=== PATIENT | female | born 1985 | race Caucasian/White ===

== ENCOUNTER 2017-01-22 14:08 | Emergency (ER) | payer OTHER, MEDICAID ==
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
[2017-01-22 14:21] VITALS: TEMP 98.4
[2017-01-22] MEDS ORDERED: LORazepam 2 MG/ML INJ ONE (14:46)
[2017-01-22] MEDS ORDERED: LORazepam 2 MG/ML INJ IVP ONE (14:56)
[2017-01-22 15:23] VITALS: BP 114/80; PULSE 69; RESP 18; O2SAT 91
== END 2017-01-22 15:23 | disposition home or self-care (01) ==
LOC: EDUNIT#
DX: S16.1XXA Strain of muscle, fascia and tendon at neck level, initial encounter (principal); S00.83XA Contusion of other part of head, initial encounter; V47.5XXA Car driver injured in collision with fixed or stationary object in traffic accident, initial encounter; Y92.410 Unspecified street and highway as the place of occurrence of the external cause
CPT/HCPCS: 96374; J2060